=== PATIENT | male | born 1990 | race African-American/Black ===

== ENCOUNTER 2023-01-22 08:26 | Emergency (ER) | payer MEDICAID ==
[~2023-01-22] VITALS: Ht 177.8 cm; Wt 78.0 kg
[2023-01-22 08:44] VITALS: TEMP 97.5; O2SAT 100
[2023-01-22] MEDS ORDERED: IBUPROFEN 600MG TABLET PO ONE (10:15)
[2023-01-22 10:59] VITALS: BP 122/79; PULSE 80; RESP 18
== END 2023-01-22 12:24 | disposition home or self-care (01) ==
LOC: ER 08:26
DX: R05.9 Cough, unspecified (principal); Z20.822 Contact with and (suspected) exposure to COVID-19
CPT/HCPCS: 99284; 71045; 87426; 87804 ×2; C9803

== ENCOUNTER 2023-05-09 10:22 | Emergency (ER) | payer MEDICAID, OTHER ==
[~2023-05-09] VITALS: Ht 180.3 cm; Wt 73.0 kg
[2023-05-09 10:30] VITALS: O2SAT 100
[2023-05-09] MEDS: IBUPROFEN 400MG TABLET PO ONE (11:00)
[2023-05-09] MEDS ORDERED: SULF1TAB48 MT (11:06)
[2023-05-09] MEDS ORDERED: IBUP-2028 MT (11:06)
[2023-05-09] MEDS ORDERED: CEPH500C2 MT (11:06)
[2023-05-09 12:00] VITALS: BP 130/74; PULSE 79; RESP 18; TEMP 98.1
== END 2023-05-09 12:02 | disposition home or self-care (01) ==
LOC: ER 10:22
DX: R51.9 Headache, unspecified (principal); L66.2 Folliculitis decalvans
CPT/HCPCS: 99283; Z7610

== ENCOUNTER 2023-08-22 11:15 | Emergency (ER) | payer MEDICAID, OTHER ==
[~2023-08-22] VITALS: Ht 180.3 cm; Wt 73.9 kg
[~2023-08-22 11:15] MED LIST: CEPH500C2 MT; IBUP-2028 MT; SULF1TAB48 MT
[2023-08-22 11:20] VITALS: O2SAT 100
[2023-08-22] MEDS ORDERED: IBUP-2028 MT (12:09)
[2023-08-22] MEDS: IBUPROFEN 600MG TABLET PO ONE (12:28)
[2023-08-22 12:36] VITALS: BP 118/70; PULSE 68; RESP 18; TEMP 98.4
== END 2023-08-22 12:38 | disposition home or self-care (01) ==
LOC: ER 11:15
DX: R20.2 Paresthesia of skin (principal)
CPT/HCPCS: 99282